=== PATIENT | male | born 1985 | race American Indian/Alaskan Native ===

== ENCOUNTER 2017-10-29 14:45 | Emergency (ER) | payer SELFPAY ==
[2017-10-29] MEDS ORDERED: Sodium Chloride 0.9% 1,000 ML IV STA ×2 (15:17→16:17)
--- NOTE | 2017-10-29 15:39 | ED PDOC ---
HPI: Abdomen Time Seen by Provider: 10/29/17 15:02 Chief Complaint (Nursing): Chest Pain Chief Complaint (Provider): Abdominal pain History Per: Patient History/Exam Limitations: no limitations Onset/Duration Of Symptoms: Days (x1), Worse Since (onset) Outside of [place] travel?: No Current Symptoms Are (Timing): Constant Context: Food (bangladeshi food) Pain Scale Rating Of: 10 Location Of Pain/Discomfort: Epigastric Quality Of Discomfort: Cramping Associated Symptoms: Vomiting (x10+ non bloody), Loss Of Appetite. denies: Diarrhea (black or bloody stools), Constipation Additional Complaint(s): Valentino Chatman is a 32 year old male, with a past medical history of seizures and asthma, who presents to the emergency department complaining of a constant epigastric abdominal pain associated with vomiting onset since yesterday. Patient states the pain began yesterday around 5pm while having Mong[place]ian food. The pain doesn't radiate but has been worsening since onset. Patient reports over x10 episodes of non bloody vomiting with occasional green emesis. He is unable to tolerate food or fluids, including water. Patient states his whole body aches and is currently sweating. He took pepto-bismol, jean-seltzer, and percocet with no relief of symptoms. He denies any diarrhea, constipation, black or bloody stool, and urinary symptoms. He denies any sick contacts or recent travels. No further medical complaints. PMD: None provided. Past Medical History Reviewed: Historical Data, Nursing Documentation, Vital Signs Vital Signs: Last Vital Signs Temp 97.8 F 10/29/17 22:40 Pulse 79 10/29/17 22:40 Resp 17 10/29/17 22:40 BP 126/76 10/29/17 22:40 Pulse Ox 100 10/29/17 22:40 - Medical History PMH: Back Problems, Seizures (epilepsy, last seizure within the past year) Denies: Asthma, Chronic Kidney Disease - Surgical History Surgical History: No Surg Hx - Family History Family History: States: Diabetes - Social History Current smoker - smoking cessation education provided: Yes Alcohol: Social Drugs: Cannabis (occasionally but not recently) - Immunization History Hx Influenza Vaccination: No - Home Medications Home Medications: Ambulatory Orders Medication Instructions Recorded Acetaminophen/Oxycodone Hydr 1 tab PO Q6 PRN #10 tab 08/18/14 [Percocet 325 mg-5 mg] Cyclobenzaprine HCl [Flexeril] 10 mg PO HS #7 tab 08/18/14 Ibuprofen 600 mg PO Q6 PRN #15 tab 08/18/14 Acetaminophen/Oxycodone Hydr 1 tab PO Q6H PRN #15 tab 08/21/14 [Percocet 325 mg-5 mg] Levetiracetam [Keppra] 250 mg PO BID #30 tab 12/24/14 Levetiracetam [Keppra] 250 mg PO BID #30 tab 01/14/15 Omeprazole [PrilOSEC] 40 mg PO DAILY #30 ecc 01/14/15 Famotidine [Pepcid] 20 mg PO BID #10 tab 02/15/15 Albuterol HFA [Ventolin HFA 90 2 puff IH [id number] #1 inhaler 03/04/16 mcg/actuation (8 g)] Azithromycin [Zithromax Tri-Herberth] 500 mg PO DAILY #1 packet 03/04/16 Prednisone 40 mg PO DAILY #6 tablet 03/04/16 Promethazine/Codeine 10 ml PO Q8 #50 ml 03/04/16 [Phenergan/Codeine Oral Syrup] Dicyclomine [Bentyl] 20 mg PO BID PRN #30 tab 10/29/17 Ondansetron ODT [Zofran ODT] 1 odt PO Q6 PRN #20 odt 10/29/17 - Allergies Allergies/Adverse Reactions: Allergies Allergy/AdvReac Type Severity Reaction Status Date / Time No Known Allergies Allergy Verified 08/18/14 17:55 Review of Systems ROS Statement: Except As Marked, All Systems Reviewed And Found Negative (and as per HPI) Constitutional: Positive for: Sweats, Other (body aches) Gastrointestinal: Positive for: Vomiting (x10 non bloody epsiodes with occasionaly green emesis), Abdominal Pain (epigastric cramp). Negative for: Diarrhea (black or bloody stools), Constipation Physical Exam - Reviewed Nursing Documentation Reviewed: Yes Vital Signs Reviewed: Yes - Physical Exam Appears: Positive for: Uncomfortable, In Acute Distress Head Exam: Positive for: ATRAUMATIC, NORMOCEPHALIC Skin: Positive for: Warm, Diaphoresis Eye Exam: Positive for: EOMI, PERRL ENT: Positive for: Pharynx Is (clear with dry mucus membranes) Neck: Positive for: Painless ROM, Supple Cardiovascular/Chest: Positive for: Chest Non Tender, Tachycardia Respiratory: Positive for: Normal Breath Sounds. Negative for: Respiratory Distress Gastrointestinal/Abdominal: Positive for: Bowel Sounds, Tenderness (diffuse), Guarding (diffuse). Negative for: Soft, Mass, Distended, Rebound Back: Positive for: Normal Inspection. Negative for: Decreased ROM Extremity: Positive for: Normal ROM. Negative for: Deformity Lymphatic: Negative for: Adenopathy Neurologic/Psych: Positive for: Alert, Mood/Affect (anxious). Negative for: Motor/Sensory Deficits - Laboratory Results Result Diagrams: 10/29/17 15:45 10/29/17 15:45 - ECG O2 Sat by Pulse Oximetry: 98 (RA) Pulse Ox Interpretation: Normal Medical Decision Making Medical Decision Making: Initial Impression: abdominal pain. Differential includes but not limited to: pancreatitis, gastritis, cholecystitis or cholelithiasis, obstruction Initial Plan: --Type and screen --VBG --Comp Metabolic Panel --Creatine Phosphokinase --Drug screen, urine --Lipase --Magnesium --Phosphorus --Urine dipstick --CBC w/ differential --PTT --PT --Obstructive series [RAD] --Dextrose 1,000 ml IV 100 mls/hr --Morphine 4 mg IVP --NS IV 1,000 ml @ 1,000 mls/hr --Zofran Inj 8 mg IV --Protonix Inj 40 mg IVP --Blood culture --reevaluation 16:08 Obstructive series FINDINGS: CHEST: Lungs: The lungs are clear. Cardiovascular: Normal size heart. No pulmonary vascular congestion. Pleura: No pleural fluid. No pneumothorax. Other findings: None. ABDOMEN AND PELVIS: Bowel: There is paucity of bowel gas. There are no differential air-fluid levels or bowel dilatation. No evidence of mechanical obstruction. Free air: None. Bones: Unremarkable. Other findings: None. IMPRESSION: Paucity of bowel gas. No evidence of differential air-fluid levels or bowel obstruction. Nonspecific bowel gas pattern. Clear lungs. -Markedly elevated CPK, additional IV fluid ordered. -On reevaluation patient still has pain. IV Toradol and ultrasound ordered. 16:56 Abdomen US FINDINGS: LIVER: Measures 14.8 cm. Normal echogenicity of the liver parenchyma. No mass. No intrahepatic bile duct dilatation. GALLBLADDER: There are no gallstones, wall thickening or pericholecystic fluid. The sonographic Buckner's sign is negative. COMMON BILE DUCT: Measures 3.0 mm. No stones. No dilatation. PANCREAS: Unremarkable as visualized. No mass. No ductal dilatation. RIGHT KIDNEY: Measures 12.0cm. Normal echogenicity. No calculus, mass, or hydronephrosis. LEFT KIDNEY: Measures 10.9cm. Normal echogenicity. No calculus, mass, or hydronephrosis. SPLEEN: Normal in size and contour. No mass. AORTA: No aneurysmal dilatation. IVC: Unremarkable. OTHER FINDINGS: None. IMPRESSION: Normal examination. 18:47 Abdomen/Pelvis CT FINDINGS: LOWER THORAX: The lung bases are clear. LIVER: The liver is normal in size and there is homogeneous enhancement. No gross lesion or ductal dilatation. GALLBLADDER AND BILE DUCTS: There are no calcified gallstones. PANCREAS: The pancreas is normal in size and there is homogeneous enhancement. No gross lesion or ductal dilatation. SPLEEN: The spleen is normal in size and appearance. ADRENALS: No discrete nodule. KIDNEYS AND URETERS: Both kidneys are normal in size and there is homogeneous enhancement without hydronephrosis or focal mass. VASCULATURE: No aortic aneurysm. BOWEL: Please note evaluation of the bowel is limited in the absence of oral contrast. Allowing for this, the small bowel loops are normal in caliber. There is apparent mild mural thickening in the colon. No bowel dilatation or obstruction APPENDIX: Normal appendix. PERITONEUM: No free fluid. No free air. LYMPH NODES: No enlarged lymph nodes. BLADDER: . Grossly normal in appearance. REPRODUCTIVE: The prostate gland is normal in size. BONES: No acute fracture. Within normal limits for the patient's age OTHER FINDINGS: None. IMPRESSION: Evaluation of the bowel is limited in the absence of oral contrast. Allowing for there is apparent mild mural thickening in the colon is nonspecific and could be related to underdistention however nonspecific infectious/inflammatory colitis cannot be excluded. Clinical correlation and follow-up is advised. No CT evidence for acute appendicitis. 18:55 -Patient still reporting mild nausea and abdominal pain, but greatly improved. Will attempt PO challenge. Discussed findings with patient. Tolerated PO Scribe Attestation: Documented by Isaias Velazquez, acting as a scribe for Raiza Garrison MD Provider Scribe Attestation: All medical record entries made by the Scribe were at my direction and personally dictated by me. I have reviewed the chart and agree that the record accurately reflects my personal performance of the history, physical exam, medical decision making, and the department course for this patient. I have also personally directed, reviewed, and agree with the discharge instructions and disposition. Disposition - Clinical Impression Clinical Impression: Abdominal pain, Rhabdomyolysis Counseled Patient/Family Regarding: Studies Performed, Diagnosis, Need For Followup, Rx Given - Disposition Referrals: [facility] [Outside] (FOLLOW UP AT CLINIC BY THE END OF THE WEEK) Disposition: Routine/Home Disposition Time: 22:13 Condition: IMPROVED Prescriptions: Dicyclomine [Bentyl] 20 mg PO BID PRN #30 tab PRN Reason: abdominal pain Ondansetron ODT [Zofran ODT] 1 odt PO Q6 PRN #20 odt PRN Reason: Nausea/Vomiting Instructions: Rhabdomyolysis (ED), Acute Nausea and Vomiting (ED), Acute Abdominal Pain (ED)
[2017-10-29] MEDS ORDERED: Morphine 4 MG/ML VIAL ONE (15:41)
[2017-10-29 15:55] LABS: BASO # 0.1 K/uL (0.0-0.2); BASO % 0.3 % (0.0-2.0); EOS % 0.1 % (0.0-4.0); HEMATOCRIT 45.5 % (35.0-51.0); LYMPH # 1.5 K/uL (1.0-4.3); LYMPH % 8.3 % (20.0-40.0); MEAN CELL VOLUME 93.2 fl (80.0-94.0); MEAN CORPUSCULAR HEMOGLOBIN 30.4 pg (27.0-31.0); MEAN CORPUSCULAR HGB CONC 32.6 g/dL (33.0-37.0); MEAN PLATELET VOLUME 11.3 fl (7.2-11.7); MONO # 0.7 K/uL (0.0-0.8); NEUT % 87.3 % (50.0-75.0); PLATELET COUNT 201 K/uL (130-400); RED CELL DISTRIBUTION WIDTH 13.7 % (11.5-14.5); WHITE BLOOD COUNT 18.4 K/uL (4.8-10.8)
[2017-10-29 16:00] LABS: VENOUS BLOOD GAS BASE EXCESS 1.5 mmol/L (0.0-2.0); VENOUS BLOOD GAS PCO2 49 mmHg (40-60); VENOUS BLOOD PH 7.36 (7.32-7.43)
[2017-10-29 16:08] LABS: PARTIAL THROMBOPLASTIN TIME 25.6 Seconds (25.6-37.1)
--- NOTE | 2017-10-29 16:10 | RAD ---
PROCEDURE: Radiographs of the chest and abdomen (obstructive series) HISTORY: abd pain r/o sbo COMPARISON: No prior. TECHNIQUE: AP radiograph of the chest, with upright and supine radiographs of the abdomen. FINDINGS: CHEST: Lungs: The lungs are clear. Cardiovascular: Normal size heart. No pulmonary vascular congestion. Pleura: No pleural fluid. No pneumothorax. Other findings: None. ABDOMEN AND PELVIS: Bowel: There is paucity of bowel gas. There are no differential air-fluid levels or bowel dilatation. No evidence of mechanical obstruction. Free air: None. Bones: Unremarkable. Other findings: None. IMPRESSION: Paucity of bowel gas. No evidence of differential air-fluid levels or bowel obstruction. Nonspecific bowel gas pattern. Clear lungs.
[2017-10-29 16:13] LABS: ALB/GLOB RATIO 1.4 (1.0-2.1); ALKALINE PHOSPHATASE 72 U/L (38-126); ALT/SGPT 109 U/L (21-72); AST/SGOT 77 U/L (17-59); BILIRUBIN,TOTAL 0.6 mg/dl (0.2-1.3); BLOOD UREA NITROGEN 17 mg/dl (9-20); CARBON DIOXIDE 23 mmol/L (22-30); CHLORIDE 105 mmol/L (98-107); GFR AFRICAN-AMERICAN > 60; GLUCOSE,RANDOM 120 mg/dL (75-110); LIPASE 22 U/L (23-300); MAGNESIUM 1.8 MG/DL (1.6-2.3); PHOSPHOROUS 3.7 mg/dl (2.5-4.5); POTASSIUM 4.1 MMOL/L (3.6-5.0); SODIUM 140 mmol/l (132-148); TOTAL PROTEIN 9.1 G/DL (6.3-8.2)
--- NOTE | 2017-10-29 16:57 | US ---
HISTORY: Abdominal pain and vomiting COMPARISON: None. TECHNIQUE: Grayscale imaging was performed. FINDINGS: LIVER: Measures 14.8 cm. Normal echogenicity of the liver parenchyma. No mass. No intrahepatic bile duct dilatation. GALLBLADDER: There are no gallstones, wall thickening or pericholecystic fluid. The sonographic Buckner's sign is negative. COMMON BILE DUCT: Measures 3.0 mm. No stones. No dilatation. PANCREAS: Unremarkable as visualized. No mass. No ductal dilatation. RIGHT KIDNEY: Measures 12.0cm. Normal echogenicity. No calculus, mass, or hydronephrosis. LEFT KIDNEY: Measures 10.9cm. Normal echogenicity. No calculus, mass, or hydronephrosis. SPLEEN: Normal in size and contour. No mass. AORTA: No aneurysmal dilatation. IVC: Unremarkable. OTHER FINDINGS: None. IMPRESSION: Normal examination.
[2017-10-29 17:31] LABS: BASOPHIL 1 % (0-2); LARGE PLATELETS PRESENT; NEUTROPHIL 84 % (42-75); TOTAL CELLS COUNTED 100
[2017-10-29] MEDS ORDERED: Iohexol 300 100 ML IJ ONE (17:54)
--- NOTE | 2017-10-29 18:49 | CT ---
PROCEDURE: CT Abdomen and Pelvis with contrast HISTORY: intractable abdominal pain COMPARISON: None. TECHNIQUE: CT scan of the abdomen and pelvis was performed after intravenous administration of contrast. Oral contrast was not administered. Coronal and sagittal reformatted images were obtained. Contrast dose: 90 mL Omnipaque 300 Radiation dose: Total exam DLP = 315.95 mGy-cm. This CT exam was performed using one or more of the following dose reduction techniques: Automated exposure control, adjustment of the mA and/or kV according to patient size, and/or use of iterative reconstruction technique. FINDINGS: LOWER THORAX: The lung bases are clear. LIVER: The liver is normal in size and there is homogeneous enhancement. No gross lesion or ductal dilatation. GALLBLADDER AND BILE DUCTS: There are no calcified gallstones. PANCREAS: The pancreas is normal in size and there is homogeneous enhancement. No gross lesion or ductal dilatation. SPLEEN: The spleen is normal in size and appearance. ADRENALS: No discrete nodule. KIDNEYS AND URETERS: Both kidneys are normal in size and there is homogeneous enhancement without hydronephrosis or focal mass. VASCULATURE: No aortic aneurysm. BOWEL: Please note evaluation of the bowel is limited in the absence of oral contrast. Allowing for this, the small bowel loops are normal in caliber. There is apparent mild mural thickening in the colon. No bowel dilatation or obstruction APPENDIX: Normal appendix. PERITONEUM: No free fluid. No free air. LYMPH NODES: No enlarged lymph nodes. BLADDER: . Grossly normal in appearance. REPRODUCTIVE: The prostate gland is normal in size. BONES: No acute fracture. Within normal limits for the patient's age OTHER FINDINGS: None. IMPRESSION: Evaluation of the bowel is limited in the absence of oral contrast. Allowing for there is apparent mild mural thickening in the colon is nonspecific and could be related to underdistention however nonspecific infectious/inflammatory colitis cannot be excluded. Clinical correlation and follow-up is advised. No CT evidence for acute appendicitis.
[2017-10-29 22:39] VITALS: RESP 17
[2017-10-29 22:42] VITALS: BP 126/76; PULSE 79; TEMP 97.8
--- NOTE | 2017-10-30 11:20 | CARD ---
APPROVED REPORT EKG Measurement Heart [id number] <Conclusion> Normal sinus rhythm Right atrial enlargement Rightward axis Borderline ECG
[2017-11-01 18:10] VITALS: O2SAT 98
== END 2017-10-29 22:19 | disposition home or self-care (01) ==
LOC: H.ER 14:45
DX: R10.13 Epigastric pain (principal); M62.82 Rhabdomyolysis; G40.909 Epilepsy, unspecified, not intractable, without status epilepticus; F17.200 Nicotine dependence, unspecified, uncomplicated; I51.7 Cardiomegaly
CPT/HCPCS: 74022; 74177; 76700; 80053; 82550; 82803; 83690; 83735; 84100; 85025; 85610; 85730; 87040; 93005; 96361; 96374; 96375; 99285; C9113; J1885; J2270; J2405; J7040; J7042; Q9967

== ENCOUNTER 2017-11-17 07:25 | Observation (INO) | payer MEDICAID ==
[2017-11-17 07:36] VITALS: BMI 25.7
[2017-11-17] MEDS ORDERED: Sodium Chloride 0.9% 1,000 ML IV STA (07:36)
--- NOTE | 2017-11-17 07:39 | ED PDOC ---
HPI: Seizure Time Seen by Provider: 11/17/17 07:28 Chief Complaint (Nursing): Seizure Chief Complaint (Provider): Seizure History Per: Patient, EMS, Family History/Exam Limitations: clinical condition Additional Complaint(s): Family heard a loud bang in pt. room so they went up and saw him on the ground. Suspect he may of had a seizure as he has a hx of it and gets seizures. No drugs or etoh use per family. Pt. with limited communication, not responding to questions. Past Medical History Reviewed: Nursing Documentation, Vital Signs Vital Signs: Last Vital Signs Temp 97.8 F 11/17/17 08:26 Pulse 100 H 11/17/17 08:26 Resp 17 11/17/17 08:26 BP 106/59 L 11/17/17 08:26 Pulse Ox 100 11/17/17 08:26 - Medical History PMH: Back Problems, Seizures (epilepsy, last seizure within the past year) Denies: Asthma, Chronic Kidney Disease - Family History Family History: States: Unknown Family Hx, Diabetes - Living Arrangements Living Arrangements: With Family - Immunization History Hx Influenza Vaccination: No - Home Medications Home Medications: Ambulatory Orders Medication Instructions Recorded Acetaminophen/Oxycodone Hydr 1 tab PO Q6 PRN #10 tab 08/18/14 [Percocet 325 mg-5 mg] Cyclobenzaprine HCl [Flexeril] 10 mg PO HS #7 tab 08/18/14 Ibuprofen 600 mg PO Q6 PRN #15 tab 08/18/14 Acetaminophen/Oxycodone Hydr 1 tab PO Q6H PRN #15 tab 08/21/14 [Percocet 325 mg-5 mg] Levetiracetam [Keppra] 250 mg PO BID #30 tab 12/24/14 Levetiracetam [Keppra] 250 mg PO BID #30 tab 01/14/15 Omeprazole [PrilOSEC] 40 mg PO DAILY #30 ecc 01/14/15 Famotidine [Pepcid] 20 mg PO BID #10 tab 02/15/15 Albuterol HFA [Ventolin HFA 90 2 puff IH [id number] #1 inhaler 03/04/16 mcg/actuation (8 g)] Azithromycin [Zithromax Tri-Herberth] 500 mg PO DAILY #1 packet 03/04/16 Prednisone 40 mg PO DAILY #6 tablet 03/04/16 Promethazine/Codeine 10 ml PO Q8 #50 ml 03/04/16 [Phenergan/Codeine Oral Syrup] Dicyclomine [Bentyl] 20 mg PO BID PRN #30 tab 10/29/17 Ondansetron ODT [Zofran ODT] 1 odt PO Q6 PRN #20 odt 10/29/17 - Allergies Allergies/Adverse Reactions: Allergies Allergy/AdvReac Type Severity Reaction Status Date / Time No Known Allergies Allergy Verified 11/17/17 07:29 Review of Systems Review Of Systems: ROS cannot be obtained secondary to pt's inabilty to answer questions. Physical Exam - Reviewed Nursing Documentation Reviewed: Yes Vital Signs Reviewed: Yes - Physical Exam Appears: Positive for: Uncomfortable Head Exam: Positive for: ATRAUMATIC, NORMAL INSPECTION, NORMOCEPHALIC Skin: Positive for: Normal Color, Warm, DRY Eye Exam: Positive for: Normal appearance, PERRL ENT: Positive for: Other (abrasion L frontal tongue mild). Negative for: Nasal Congestion, Pharyngeal Erythema Neck: Positive for: Supple, Trachea Midline Cardiovascular/Chest: Positive for: Regular Rate, Rhythm Respiratory: Positive for: CNT, Normal Breath Sounds Gastrointestinal/Abdominal: Positive for: Bowel Sounds, Soft. Negative for: Tenderness Back: Positive for: Normal Inspection. Negative for: L CVA Tenderness, R CVA Tenderness Extremity: Negative for: Tenderness, Pedal Edema Neurologic/Psych: Positive for: Alert, Other (pt. responding to his name and follows some commands; moving all extremities at will). Negative for: Facial Droop - Laboratory Results Result Diagrams: 11/17/17 07:55 11/17/17 07:55 Interpretation Of Abn Labs: 19.8 wbc, co2 less then 5, lactate elevated - ECG ECG: Positive for: Interpreted By Me, Viewed By Me ECG Rhythm: Positive for: Normal QRS, Normal ST Segment, Sinus Rhythm - Progress ED Course And Treament: 1054: More awake. States he has not taken keppra for over 1 yr. States no pcp. Hx of sz. Considering symptoms and labs, will admit. Spoke with Dr. Beaver. Will admit tele obs. Stable. AAOx3. Spoke with Dr. Nguyễn. Wants keppra 1gm. 500mg bid. - Critical Care Total Time (In Min): 30 Documented Critical Care: Time excludes all time spent performint seperately billable procedures Disposition - Clinical Impression Clinical Impression: Generalized seizure, Dehydration, Head injuries, Drug use - Patient ED Disposition Is Patient to be Admitted: Yes Counseled Patient/Family Regarding: Studies Performed, Diagnosis - Disposition Disposition Time: 10:01 Condition: FAIR - Pt Status Changed To: Hospital Disposition Of: Observation - POA Present On Arrival: Falls Or Trauma
[2017-11-17 08:28] LABS: BASO # 0.2 K/uL (0.0-0.2); BASO % 0.8 % (0.0-2.0); EOS # 0.4 K/uL (0.0-0.7); EOS % 1.9 % (0.0-4.0); HEMOGLOBIN 15.3 g/dL (12.0-18.0); LYMPH # 5.7 K/uL (1.0-4.3); MEAN CELL VOLUME 102.6 fl (80.0-94.0); MEAN CORPUSCULAR HEMOGLOBIN 30.8 pg (27.0-31.0); MEAN CORPUSCULAR HGB CONC 30.1 g/dL (33.0-37.0); MEAN PLATELET VOLUME 11.4 fl (7.2-11.7); MONO # 1.3 K/uL (0.0-0.8); MONO % 6.4 % (0.0-10.0); NEUT # 12.3 K/uL (1.8-7.0); NEUT % 61.9 % (50.0-75.0); NRBC % 0.1 % (0.0-0.0); RBC 4.95 Mil/uL (4.40-5.90); RED CELL DISTRIBUTION WIDTH 14.7 % (11.5-14.5); WHITE BLOOD COUNT 19.8 K/uL (4.8-10.8)
--- NOTE | 2017-11-17 08:45 | CT ---
PROCEDURE: CT HEAD WITHOUT CONTRAST. HISTORY: headache COMPARISON: None available. TECHNIQUE: Axial computed tomography images were obtained through the head/brain without intravenous contrast. Radiation dose: Total exam DLP = 1140 mGy-cm. This CT exam was performed using one or more of the following dose reduction techniques: Automated exposure control, adjustment of the mA and/or kV according to patient size, and/or use of iterative reconstruction technique. FINDINGS: HEMORRHAGE: No intracranial hemorrhage. BRAIN: No mass effect or edema. No atrophy or chronic microvascular ischemic changes. VENTRICLES: Unremarkable. No hydrocephalus. CALVARIUM: Unremarkable. PARANASAL SINUSES: Unremarkable as visualized. No significant inflammatory changes. MASTOID AIR CELLS: Unremarkable as visualized. No inflammatory changes. OTHER FINDINGS: No cortical effacement is appreciated. Subdural windows show no evidence of extra-axial collection. Retro-orbital regions are unremarkable. Pituitary gland is normal in size. Posterior fossa is unremarkable. IMPRESSION: Unremarkable CT scan of the brain. If symptoms persist MRI would be suggested for further evaluation.
[2017-11-17 09:54] LABS: BARBITURATES, UR NEGATIVE (NEGATIVE); BENZODIAZEPINES, UR NEGATIVE (NEGATIVE); OPIATES, UR NEGATIVE (NEGATIVE); PHENCYCLIDINE, UR NEGATIVE (NEGATIVE)
[2017-11-17 10:25] LABS: ALB/GLOB RATIO 1.5 (1.0-2.1); ALBUMIN 5.8 g/dL (3.5-5.0); ALT/SGPT 47 U/L (21-72); AST/SGOT 44 U/L (17-59); BLOOD UREA NITROGEN 8 mg/dl (9-20); CALCIUM 10.5 mg/dL (8.4-10.2); GFR AFRICAN-AMERICAN > 60; GFR NON-AFRICAN AMERICAN > 60
[2017-11-17 10:58] LABS: ABG ALLEN TEST YES; ARTERIAL BLOOD GAS HCO3 21.3 mmol/L (21-28); ARTERIAL BLOOD GAS O2 SAT 100.9 % (95-98); ARTERIAL BLOOD GAS PCO2 37 mm/Hg (35-45); ARTERIAL BLOOD GAS PH 7.35 (7.35-7.45); ARTERIAL BLOOD GAS PO2 130 mm/Hg (80-100); ARTERIAL BLOOD GAS TCO2 21.5 mmol/L (22-28)
[2017-11-17] MEDS ORDERED: Lactated Ringer's 1,000 ML IV SCH ×2 (11:00→11:45)
--- NOTE | 2017-11-17 11:16 | RAD ---
HISTORY: seizure COMPARISON: 03/20/2016 FINDINGS: LUNGS: No focal infiltrate is seen on this single frontal chest x-ray. Hilar regions are normal in outline. Heart is normal in size. Mild scoliosis is seen. PLEURA: No significant pleural effusion identified, no pneumothorax apparent. CARDIOVASCULAR: Normal. OSSEOUS STRUCTURES: No significant abnormalities. VISUALIZED UPPER ABDOMEN: Normal. OTHER FINDINGS: None. IMPRESSION: No focal alveolar infiltrate.
[2017-11-17] MEDS ORDERED: levETIRAcetam 1,000 MG in Sodium Chloride 0.9% 100 ML IVPB STA (11:35)
--- NOTE | 2017-11-17 11:56 | CARD ---
APPROVED REPORT EKG Measurement Heart [id number] <Conclusion> Normal sinus rhythm Rightward axis Borderline ECG
--- NOTE | 2017-11-17 12:12 | CP.PCM.HP ---
History of Present Illness - History of Present Illness History of Present Illness: This is a 32 year old male with a pmh of epilepsy who presents to the ED s/p seizure x 2. The patient has not been on his home medication of Keppra in over a year as he does not have insurance and can not afford it. As per the patient' s cohabitant, the patient is under a lot of stress at home and has not been sleeping well. This morning, she heard a loud bang in the patients bedroom and came and saw him on the ground. However at that time there was no witnessed seizure activity. He woke up about 3 minutes later but was very confused. EMS was called at that time. The patient had a second seizure witnessed by EMS that was genralized tonic/clonic in nature which lasted approximately 4 minutes. In the ED he was given Ativan and there was no further witnessed seizure activity. Dr. Nguyễn was called and he instructed ED physician to give Keppra 1 gram IV which was done. Currently the patient is somnolent and unable to give review of systems. Labs show elevated lactic acid, WBC, CPK, all secondary to his seizure. However, he also has hyperglycemia, so we will eval for diabetes. The history was obtained from the patient's cohabitant, Manasa, who can be reached at [phone]. Present on Admission - Present on Admission Any Indicators Present on Admission: No Review of Systems - Review of Systems Systems not reviewed;Unavailable: Altered Mental Status Past Patient History - Infectious Disease Hx of Infectious Diseases: None - Past Medical History & Family History Past Family History: Reviewed and not pertinent - Past Social History Smoking Status: Light Smoker < 10 Cigarettes Daily Alcohol: Social Drugs: Cannabis Home Situation {Lives}: Friends - CARDIAC Hx Cardiac Disorders: No - PULMONARY Hx Asthma: No - NEUROLOGICAL Hx Seizures: Yes (epilepsy, last seizure within the past year) - HEENT Hx HEENT Problems: No - RENAL Hx Chronic Kidney Disease: No - ENDOCRINE/METABOLIC Hx Endocrine Disorders: No - HEMATOLOGICAL/ONCOLOGICAL Hx Blood Disorders: No - INTEGUMENTARY Hx Dermatological Problems: No - MUSCULOSKELETAL/RHEUMATOLOGICAL Hx Musculoskeletal Disorders: Yes - GASTROINTESTINAL Hx Gastrointestinal Disorders: No - GENITOURINARY/GYNECOLOGICAL Hx Genitourinary Disorders: No - PSYCHIATRIC Hx Psychophysiologic Disorder: No Hx Substance Use: Yes - SURGICAL HISTORY Hx Surgeries: No - ANESTHESIA Hx Anesthesia: No Meds Allergies/Adverse Reactions: Allergies Allergy/AdvReac Type Severity Reaction Status Date / Time No Known Allergies Allergy Verified 11/17/17 07:29 Physical Exam - Additional Findings Additional findings: Physical exam: Constitutional- Somnolent but arousable, appears comfortable. Head- NCAT, PERRL Eye- PERRL, EOMI ENT- normal exam, MMM. Neck- normal inspection, supple, no JVD Respiratory- CTAB, no wheezes rales rhonchi Cardiovascular- RRR, +S1, +S2 no MRG GI/Abdominal- normal bowel sounds, soft, no mass, no hsm Skin- warm, dry Extremities Exam- normal capillary refill, normal inspection Neurological Exam- somnolent but arousable. Psych- normal mood, normal affect Results - Vital Signs Recent Vital Signs: Last Vital Signs Temp 97.8 F 11/17/17 08:26 Pulse 100 H 11/17/17 08:26 Resp 17 11/17/17 08:26 BP 106/59 L 11/17/17 08:26 Pulse Ox 100 11/17/17 08:26 - Labs Result Diagrams: 11/17/17 07:55 11/17/17 07:55 Labs: Laboratory Results - last 24 hr 11/17/17 11/17/17 11/17/17 07:29 07:55 07:55 WBC 19.8 H RBC 4.95 Hgb 15.3 Hct 50.8 MCV 102.6 H D MCH 30.8 MCHC 30.1 L RDW 14.7 H Plt Count 240 MPV 11.4 Neut % (Auto) 61.9 Lymph % (Auto) 29.0 [place] % (Auto) 6.4 Eos % (Auto) 1.9 Baso % (Auto) 0.8 Neut # 12.3 H Lymph # 5.7 H [place] # 1.3 H Eos # 0.4 Baso # 0.2 pCO2 pO2 HCO3 ABG pH ABG Total CO2 ABG O2 Saturation ABG Base Excess Rolly Test ABG Potassium A-a O2 Difference Glucose Lactate FiO2 Sodium 148 Potassium 3.5 L Chloride 105 Carbon Dioxide < 5 L* D Anion Gap 42 H BUN 8 L Creatinine 1.0 Est GFR ( Amer) > 60 Est GFR (Non-Af Amer) > 60 POC Glucose (mg/dL) 243 H Random Glucose 285 H Lactic Acid Calcium 10.5 H Total Bilirubin 0.3 AST 44 ALT 47 Alkaline Phosphatase 72 Total Creatine Kinase 323 H Troponin I < 0.0120 Total Protein 9.7 H Albumin 5.8 H Globulin 4.0 H Albumin/Globulin Ratio 1.5 Arterial Blood Potassium Urine Opiates Screen Urine Methadone Screen Ur Barbiturates Screen Ur Phencyclidine Scrn Ur Amphetamines Screen U Benzodiazepines Scrn U Oth Cocaine Metabols U Cannabinoids Screen Alcohol, Quantitative < 10 11/17/17 11/17/17 11/17/17 07:55 08:14 10:47 WBC RBC Hgb Hct MCV MCH MCHC RDW Plt Count MPV Neut % (Auto) Lymph % (Auto) [place] % (Auto) Eos % (Auto) Baso % (Auto) Neut # Lymph # [place] # Eos # Baso # pCO2 37 pO2 130 H HCO3 21.3 ABG pH 7.35 ABG Total CO2 21.5 L ABG O2 Saturation 100.9 H ABG Base Excess -4.7 L Rolly Test Yes ABG Potassium 3.5 L A-a O2 Difference 23.0 Glucose 85 Lactate 0.7 FiO2 28.0 Sodium 137.0 Potassium Chloride 107.0 Carbon Dioxide Anion Gap BUN Creatinine Est GFR ( Amer) Est GFR (Non-Af Amer) POC Glucose (mg/dL) Random Glucose Lactic Acid 14.6 H* Calcium Total Bilirubin AST ALT Alkaline Phosphatase Total Creatine Kinase Troponin I Total Protein Albumin Globulin Albumin/Globulin Ratio Arterial Blood Potassium 3.5 L Urine Opiates Screen Negative Urine Methadone Screen Negative Ur Barbiturates Screen Negative Ur Phencyclidine Scrn Negative Ur Amphetamines Screen Negative U Benzodiazepines Scrn Negative U Oth Cocaine Metabols Negative U Cannabinoids Screen Positive H Alcohol, Quantitative Assessment & Plan - Assessment and Plan (Free Text) Plan: ASSESSMENT/PLAN Reoccurrence of epileptic seizure - Tele/obs admission - Consultation with Dr. nguyễn appreciated - Continue Keppra 1000 mg IV q 12 hours - Ativan PRN for seizure activity - Seizure precautions - Neuro checks q 4 hours - Regular diet - NS at 75 cc/hour - repeat CPK levels - Ibuprofen PRN for pain Hyperglycemia on admission, 285 - HGA1C for eval of DM, poss type 1? - TSH - Lipid profile Hypocarbia - Likely due to hyperventilation - Recheck DVT prophylaxis - SCDs due to fall risk
[2017-11-17 12:38] LABS: HDL CHOLESTEROL 76 MG/DL (30-70)
[2017-11-17 12:49] LABS: LDL CHOLESTEROL 71 mg/dL (0-129)
[2017-11-17] MEDS: Sodium Chloride 0.9% 1,000 ML IV SCH (13:36)
--- NOTE | 2017-11-17 17:24 | CP.PCM.CON ---
History of Present Illness - History of Present Illness History of Present Illness: Mr. Chatman is a 32-year-old man with a past medical history of epilepsy, and was previously on Keppra, but lost his insurance and has not taken it for the last year. Yesterday, he had a generalized tonic clonic seizure and was admitted for stabilization since he was in a post-ictal state. He was loaded with Keppra 1 gram IV. Today, he is back to baseline, but continues to complain of feeling irritable and lethargic with the Keppra. I recommended Depakote 500 mg BID and told him that it would cost about $40 a month. He said that he would not be able to afford that. His urine drug screen was positive for cannabis. He denied having a headache today, but did complain of feeling sore. Review of Systems - Review of Systems All systems: reviewed and no additional remarkable complaints except Past Patient History - Infectious Disease Hx of Infectious Diseases: None - Past Medical History & Family History Past Family History: Reviewed and not pertinent - Past Social History Smoking Status: Light Smoker < 10 Cigarettes Daily - CARDIAC Hx Cardiac Disorders: No - PULMONARY Hx Respiratory Disorders: No Hx Asthma: No - NEUROLOGICAL Hx Seizures: Yes (epilepsy, last seizure within the past year) - HEENT Hx HEENT Problems: No - RENAL Hx Chronic Kidney Disease: No - ENDOCRINE/METABOLIC Hx Endocrine Disorders: No - HEMATOLOGICAL/ONCOLOGICAL Hx Blood Disorders: No - INTEGUMENTARY Hx Dermatological Problems: No - MUSCULOSKELETAL/RHEUMATOLOGICAL Hx Falls: Yes (today) - GASTROINTESTINAL Hx Gastrointestinal Disorders: No - GENITOURINARY/GYNECOLOGICAL Hx Genitourinary Disorders: No - PSYCHIATRIC Hx Substance Use: Yes - SURGICAL HISTORY Hx Surgeries: No - ANESTHESIA Hx Anesthesia: No Meds Allergies/Adverse Reactions: Allergies Allergy/AdvReac Type Severity Reaction Status Date / Time No Known Allergies Allergy Verified 11/17/17 07:29 - Medications Medications: Current Medications Sodium Chloride (Sodium Chloride 0.9%) 1,000 mls @ 75 mls/hr IV .[id number] REEMA Last Admin: 11/17/17 13:36 Dose: 75 mls/hr Ibuprofen (Motrin Tab) 400 mg PO Q6 PRN PRN Reason: Pain, moderate (4-7) Last Admin: 11/17/17 13:02 Dose: 400 mg Lorazepam (Ativan) 1 mg IVP ONCE PRN PRN Reason: Seizure activity Physical Exam - Constitutional Appears: Well - Head Exam Head Exam: ATRAUMATIC, NORMAL INSPECTION, NORMOCEPHALIC - Eye Exam Eye Exam: EOMI, Normal appearance, PERRL - ENT Exam ENT Exam: Mucous Membranes Moist, Normal Exam - Neck Exam Neck exam: Positive for: Normal Inspection - Respiratory Exam Respiratory Exam: Clear to Auscultation Bilateral, NORMAL BREATHING PATTERN - Cardiovascular Exam Cardiovascular Exam: REGULAR RHYTHM, +S1, +S2 - GI/Abdominal Exam GI & Abdominal Exam: Normal Bowel Sounds, Soft. absent: Tenderness - Rectal Exam Rectal Exam: Deferred - Extremities Exam Extremities exam: Positive for: normal inspection - Back Exam Back exam: NORMAL INSPECTION - Neurological Exam Neurological exam: Alert, CN II-XII Intact, Normal Gait, Oriented x3, Reflexes Normal - Psychiatric Exam Psychiatric exam: Normal Affect, Normal Mood Results - Vital Signs Recent Vital Signs: Last Vital Signs Temp 98.7 F 11/17/17 16:19 Pulse 86 11/17/17 16:19 Resp 20 11/17/17 16:19 BP 115/63 11/17/17 16:19 Pulse Ox 98 11/17/17 16:19 - Labs Result Diagrams: 11/17/17 07:55 11/17/17 07:55 Labs: Laboratory Results - last 24 hr 11/17/17 11/17/17 11/17/17 07:29 07:55 07:55 WBC 19.8 H RBC 4.95 Hgb 15.3 Hct 50.8 MCV 102.6 H D MCH 30.8 MCHC 30.1 L RDW 14.7 H Plt Count 240 MPV 11.4 Neut % (Auto) 61.9 Lymph % (Auto) 29.0 [place] % (Auto) 6.4 Eos % (Auto) 1.9 Baso % (Auto) 0.8 Neut # 12.3 H Lymph # 5.7 H [place] # 1.3 H Eos # 0.4 Baso # 0.2 pCO2 pO2 HCO3 ABG pH ABG Total CO2 ABG O2 Saturation ABG Base Excess Rolly Test ABG Potassium A-a O2 Difference Glucose Lactate FiO2 Sodium 148 Potassium 3.5 L Chloride 105 Carbon Dioxide < 5 L* D Anion Gap 42 H BUN 8 L Creatinine 1.0 Est GFR ( Amer) > 60 Est GFR (Non-Af Amer) > 60 POC Glucose (mg/dL) 243 H Random Glucose 285 H Lactic Acid Calcium 10.5 H Total Bilirubin 0.3 AST 44 ALT 47 Alkaline Phosphatase 72 Total Creatine Kinase 323 H Troponin I < 0.0120 Total Protein 9.7 H Albumin 5.8 H Globulin 4.0 H Albumin/Globulin Ratio 1.5 Triglycerides 169 H D Cholesterol 175 LDL Cholesterol Direct 71 HDL Cholesterol 76 H TSH 3rd Generation 3.31 Arterial Blood Potassium Urine Opiates Screen Urine Methadone Screen Ur Barbiturates Screen Ur Phencyclidine Scrn Ur Amphetamines Screen U Benzodiazepines Scrn U Oth Cocaine Metabols U Cannabinoids Screen Alcohol, Quantitative < 10 11/17/17 11/17/17 11/17/17 07:55 08:14 10:47 WBC RBC Hgb Hct MCV MCH MCHC RDW Plt Count MPV Neut % (Auto) Lymph % (Auto) [place] % (Auto) Eos % (Auto) Baso % (Auto) Neut # Lymph # [place] # Eos # Baso # pCO2 37 pO2 130 H HCO3 21.3 ABG pH 7.35 ABG Total CO2 21.5 L ABG O2 Saturation 100.9 H ABG Base Excess -4.7 L Rolly Test Yes ABG Potassium 3.5 L A-a O2 Difference 23.0 Glucose 85 Lactate 0.7 FiO2 28.0 Sodium 137.0 Potassium Chloride 107.0 Carbon Dioxide Anion Gap BUN Creatinine Est GFR ( Amer) Est GFR (Non-Af Amer) POC Glucose (mg/dL) Random Glucose Lactic Acid 14.6 H* Calcium Total Bilirubin AST ALT Alkaline Phosphatase Total Creatine Kinase Troponin I Total Protein Albumin Globulin Albumin/Globulin Ratio Triglycerides Cholesterol LDL Cholesterol Direct HDL Cholesterol TSH 3rd Generation Arterial Blood Potassium 3.5 L Urine Opiates Screen Negative Urine Methadone Screen Negative Ur Barbiturates Screen Negative Ur Phencyclidine Scrn Negative Ur Amphetamines Screen Negative U Benzodiazepines Scrn Negative U Oth Cocaine Metabols Negative U Cannabinoids Screen Positive H Alcohol, Quantitative Assessment & Plan (1) Epilepsy Assessment and Plan: Will stare Depakote 500 mg BID and stop Keppra. A social organization professor should be consulted to assist with insurance. Case management consult is recommended. The patient should be followed by an outpatient neurologist. Status: Acute Priority: High
[2017-11-17 17:47] LABS: BLOOD UREA NITROGEN 9 mg/dl (9-20); CALCIUM 8.8 mg/dL (8.4-10.2); GFR AFRICAN-AMERICAN > 60; GFR NON-AFRICAN AMERICAN > 60
[2017-11-17] MEDS: Divalproex 500 mg DR(BID formulation) PO SCH (18:03)
[2017-11-17] MEDS ORDERED: levETIRAcetam 1,000 MG in Sodium Chloride 0.9% 100 ML IVPB SCH (21:00)
[2017-11-18 00:56] VITALS: RESP 18
[2017-11-18] MEDS: Sodium Chloride 0.9% 1,000 ML IV SCH ×2 (02:55→11:14)
[2017-11-18 05:26] LABS: HEMOGLOBIN 12.3 g/dL (12.0-18.0); MEAN CELL VOLUME 92.1 fl (80.0-94.0); MEAN CORPUSCULAR HEMOGLOBIN 30.1 pg (27.0-31.0); MEAN CORPUSCULAR HGB CONC 32.7 g/dL (33.0-37.0); RBC 4.09 Mil/uL (4.40-5.90); RED CELL DISTRIBUTION WIDTH 13.4 % (11.5-14.5); WHITE BLOOD COUNT 18.8 K/uL (4.8-10.8)
[2017-11-18 05:43] LABS: BLOOD UREA NITROGEN 10 mg/dl (9-20); GFR AFRICAN-AMERICAN > 60; GFR NON-AFRICAN AMERICAN > 60
[2017-11-18] MEDS: Divalproex 500 mg DR(BID formulation) PO SCH (09:00)
--- NOTE | 2017-11-18 10:48 | CP.PCM.DIS ---
Provider - Provider Date of Admission: 11/17/17 10:53 Attending physician: Coleman Beaver DO Time Spent in preparation of Discharge (in minutes): 20 Hospital Course - Lab Results Lab Results: Most Recent Lab Values WBC 18.8 K/uL (4.8-10.8) H 11/18/17 04:25 RBC 4.09 Mil/uL (4.40-5.90) L 11/18/17 04:25 Hgb 12.3 g/dL (12.0-18.0) D 11/18/17 04:25 Hct 37.6 % (35.0-51.0) 11/18/17 04:25 MCV 92.1 fl (80.0-94.0) D 11/18/17 04:25 MCH 30.1 pg (27.0-31.0) 11/18/17 04:25 MCHC 32.7 g/dL (33.0-37.0) L 11/18/17 04:25 RDW 13.4 % (11.5-14.5) 11/18/17 04:25 Plt Count 170 K/uL (130-400) 11/18/17 04:25 MPV 11.4 fl (7.2-11.7) 11/17/17 07:55 Neut % (Auto) 61.9 % (50.0-75.0) 11/17/17 07:55 Lymph % (Auto) 29.0 % (20.0-40.0) 11/17/17 07:55 [place] % (Auto) 6.4 % (0.0-10.0) 11/17/17 07:55 Eos % (Auto) 1.9 % (0.0-4.0) 11/17/17 07:55 Baso % (Auto) 0.8 % (0.0-2.0) 11/17/17 07:55 Neut # 12.3 K/uL (1.8-7.0) H 11/17/17 07:55 Lymph # 5.7 K/uL (1.0-4.3) H 11/17/17 07:55 [place] # 1.3 K/uL (0.0-0.8) H 11/17/17 07:55 Eos # 0.4 K/uL (0.0-0.7) 11/17/17 07:55 Baso # 0.2 K/uL (0.0-0.2) 11/17/17 07:55 pCO2 37 mm/Hg (35-45) 11/17/17 10:47 pO2 130 mm/Hg (80-100) H 11/17/17 10:47 HCO3 21.3 mmol/L (21-28) 11/17/17 10:47 ABG pH 7.35 (7.35-7.45) 11/17/17 10:47 ABG Total CO2 21.5 mmol/L (22-28) L 11/17/17 10:47 ABG O2 Saturation 100.9 % (95-98) H 11/17/17 10:47 ABG Base Excess -4.7 mmol/L (-2.0-3.0) L 11/17/17 10:47 Rolly Test Yes 11/17/17 10:47 ABG Potassium 3.5 mmol/L (3.6-5.2) L 11/17/17 10:47 A-a O2 Difference 23.0 mm/Hg 11/17/17 10:47 Sodium 137.0 mmol/L (132-148) 11/17/17 10:47 Chloride 107.0 mmol/L (98-107) 11/17/17 10:47 Glucose 85 mg/dL (75-110) 11/17/17 10:47 Lactate 0.7 mmol/L (0.7-2.1) 11/17/17 10:47 FiO2 28.0 % 11/17/17 10:47 Sodium 140 mmol/l (132-148) 11/18/17 04:25 Potassium 4.1 MMOL/L (3.6-5.0) 11/18/17 04:25 Chloride 108 mmol/L (98-107) H 11/18/17 04:25 Carbon Dioxide 20 mmol/L (22-30) L 11/18/17 04:25 Anion Gap 16 (10-20) 11/18/17 04:25 BUN 10 mg/dl (9-20) 11/18/17 04:25 Creatinine 0.7 mg/dl (0.8-1.5) L 11/18/17 04:25 Est GFR ( Amer) > 60 11/18/17 04:25 Est GFR (Non-Af Amer) > 60 11/18/17 04:25 POC Glucose (mg/dL) 243 mg/dL (65-110) H 11/17/17 07:29 Random Glucose 97 mg/dL (75-110) 11/18/17 04:25 Lactic Acid 14.6 MMOL/L (0.7-2.1) H* 11/17/17 07:55 Calcium 9.0 mg/dL (8.4-10.2) 11/18/17 04:25 Total Bilirubin 0.3 mg/dl (0.2-1.3) 11/17/17 07:55 AST 44 U/L (17-59) 11/17/17 07:55 ALT 47 U/L (21-72) 11/17/17 07:55 Alkaline Phosphatase 72 U/L (38-126) 11/17/17 07:55 Total Creatine Kinase 4126 U/L (55-170) H 11/18/17 04:25 Troponin I < 0.0120 ng/mL (0.00-0.120) 11/17/17 07:55 Total Protein 9.7 G/DL (6.3-8.2) H 11/17/17 07:55 Albumin 5.8 g/dL (3.5-5.0) H 11/17/17 07:55 Globulin 4.0 gm/dL (2.2-3.9) H 11/17/17 07:55 Albumin/Globulin Ratio 1.5 (1.0-2.1) 11/17/17 07:55 Triglycerides 169 mg/DL (0-149) H D 11/17/17 07:55 Cholesterol 175 mg/dL (0-199) 11/17/17 07:55 LDL Cholesterol Direct 71 mg/dL (0-129) 11/17/17 07:55 HDL Cholesterol 76 MG/DL (30-70) H 11/17/17 07:55 TSH 3rd Generation 3.31 mIU/ML (0.46-4.68) 11/17/17 07:55 Arterial Blood Potassium 3.5 mmol/L (3.6-5.2) L 11/17/17 10:47 Urine Opiates Screen Negative (NEGATIVE) 11/17/17 08:14 Urine Methadone Screen Negative (NEGATIVE) 11/17/17 08:14 Ur Barbiturates Screen Negative (NEGATIVE) 11/17/17 08:14 Ur Phencyclidine Scrn Negative (NEGATIVE) 11/17/17 08:14 Ur Amphetamines Screen Negative (NEGATIVE) 11/17/17 08:14 U Benzodiazepines Scrn Negative (NEGATIVE) 11/17/17 08:14 U Oth Cocaine Metabols Negative (NEGATIVE) 11/17/17 08:14 U Cannabinoids Screen Positive (NEGATIVE) H 11/17/17 08:14 Alcohol, Quantitative < 10 mg/dl (0-10) 11/17/17 07:55 - Hospital Course Hospital Course: 32 y/o non-compliant male patient with a past medical history of epilepsy was admitted to the hospital from ED s/p seizure x 2. Patient was on outpatient Keppra which he stopped taking about a year ago. During the hospital stay, patient received head CT which showed unremarkable results. Patient was had elevated WBC, lactic acid at the time of admission; new labs were taken at the time of his discharge which showed improvement. Patient was also loaded with Keppra at the time of admission but is now switched to Depakote due to financial concerns. Patient was also seen by neurology during his admission who recommended Depakote 500 mg BID and stop Keppra. Today, patient is feeling better but reports of having muscle soreness (possibly due to tonic-clonic seizure). Reports that his headache has also improved since his admission. During the hospital stay, patient was found to have elevated blood glucose which was not followed well due to patient rejecting accuchecks. Patient is extremely non-compliant. Patient and the mother was educated to follow up at the clinic and prescriptions were provided before discharge. 1). Reoccurrence of epileptic seizure - Resolved - Tele/obs admission - Consultation with Dr. Nguyễn - Recommended Depakote 500 mg BID and follow up with a neurologist as an outpatient - Depakote 500 mg BID - Ativan PRN for seizure activity - Seizure precautions - Ibuprofen PRN for pain 2). Hyperglycemia on admission, 285 - HGA1C for eval of DM, poss type 1? - @ 107 mg/dL on discharge - Date & Time of H&P Date of H&P: 11/18/17 Time of H&P: 10:32 Discharge Exam - Head Exam Head Exam: ATRAUMATIC, NORMAL INSPECTION, NORMOCEPHALIC - Eye Exam Eye Exam: Normal appearance - ENT Exam ENT Exam: Normal Exam - Neck Exam Neck exam: Full Rom, Normal Inspection, Tenderness (Muscular tenderness during ROM of the neck (R>L)) - Respiratory Exam Respiratory Exam: Clear to PA & Lateral, NORMAL BREATHING PATTERN, UNREMARKABLE - Cardiovascular Exam Cardiovascular Exam: REGULAR RHYTHM, +S1, +S2 - GI/Abdominal Exam GI & Abdominal Exam: Normal Bowel Sounds, Soft, Unremarkable - Rectal Exam Rectal Exam: Deferred - Extremities Exam Extremities exam: full ROM, normal inspection, tenderness - Back Exam Back exam: FULL ROM, tenderness - Neurological Exam Neurological exam: Alert, Oriented x3 - Psychiatric Exam Psychiatric exam: Normal Affect, Normal Mood - Skin Skin Exam: Intact, Normal Color, Warm Discharge Plan - Discharge Medications Prescriptions: Divalproex [Depakote] 500 mg PO BID #120 tcp - Follow Up Plan Condition: FAIR Disposition: HOME/ ROUTINE Instructions: Epilepsy (DC) Additional Instructions: Please schedule follow up appointment in two weeks at [facility] [place] tel [phone]. Take your Vimpat (antiseizure medication) as ordered. Referrals: [facility] [place] [Outside]
[2017-11-18 12:46] VITALS: BP 112/66; PULSE 61; TEMP 99; O2SAT 99
[2017-11-18] MEDS ORDERED: Magnesium Sulfate 2 gm/50 ml 2 GM/50 ML BAG IVPB ONE (13:20)
[2017-11-18] MEDS ORDERED: Dexamethasone 10 MG in Sodium Chloride 0.9% 50 ML IV ONE (13:22)
--- NOTE | 2017-11-18 13:25 | CP.PCM.PN ---
Subjective - Date & Time of Evaluation Date of Evaluation: 11/18/17 Time of Evaluation: 13:23 - Subjective Subjective: Mr. Chatman was seen and examined at the bedside. He is alert, oriented in all spheres. He states of experiencing headache with pain scale 5/10 located at the bilateral temporal areas radiating to the frontal area. He denies any blurred vision, dizziness, lightheadedness, nause, or vomiting. He is able to follow simple commands. There was no untoward events overnight. Objective - Vital Signs/Intake and Output Vital Signs (last 24 hours): Temp Pulse Resp BP Pulse Ox 99.0 F 61 18 112/66 99 11/18/17 12:00 11/18/17 12:00 11/18/17 12:00 11/18/17 12:00 11/18/17 12:00 - Medications Medications: Current Medications Acetaminophen (Tylenol 325mg Tab) 650 mg PO Q6 PRN PRN Reason: Pain, moderate (4-7) Last Admin: 11/17/17 17:55 Dose: 650 mg Divalproex Sodium (Depakote Dr(*Bid*)) 500 mg PO BID [facility] Last Admin: 11/18/17 09:00 Dose: 500 mg Sodium Chloride (Sodium Chloride 0.9%) 1,000 mls @ 75 mls/hr IV .[id number] [facility] Last Admin: 11/18/17 02:55 Dose: 75 mls/hr Magnesium Sulfate (Magnesium Sulfate 2 Gm/50 Ml Water) 2 gm in 50 mls @ 50 mls/ hr IVPB ONCE ONE PRN Reason: 2 GM/HR Stop: 11/18/17 14:19 Dexamethasone 10 mg/ Sodium (Chloride) 51 mls @ 100 mls/hr IV ONCE ONE Stop: 11/18/17 13:51 Ibuprofen (Motrin Tab) 400 mg PO Q6 PRN PRN Reason: Pain, moderate (4-7) Last Admin: 11/18/17 09:01 Dose: 400 mg Lorazepam (Ativan) 1 mg IVP ONCE PRN PRN Reason: Seizure activity - Labs Labs: 11/18/17 04:25 11/18/17 04:25 - Constitutional Appears: No Acute Distress - Head Exam Head Exam: NORMAL INSPECTION - Neurological Exam Neurological Exam: Alert, Awake, CN II-XII Intact, Oriented x3 Neuro motor strength exam: Left Upper Extremity: 4, Right Upper Extremity: 4, Left Lower Extremity: 4, Right Lower Extremity: 4 Additional comments: He is able to answer questions appropriately and follows simple commands Assessment and Plan (1) Epilepsy Assessment & Plan: Case discussed with Dr. Nguyễn, continue all current medical regimen and follow up with his primary neurologist as an outpatient. Status: Acute
[2017-11-18 14:30] LABS: HEMOGLOBIN 12.5 g/dL (12.0-18.0); MEAN CELL VOLUME 91.4 fl (80.0-94.0); MEAN CORPUSCULAR HEMOGLOBIN 30.2 pg (27.0-31.0); RBC 4.13 Mil/uL (4.40-5.90); RED CELL DISTRIBUTION WIDTH 13.2 % (11.5-14.5); WHITE BLOOD COUNT 14.4 K/uL (4.8-10.8)
== END 2017-11-18 15:30 | disposition home or self-care (01) ==
LOC: H.ER 07:25 → H.ERHOLD 10:53 → H.TEL 12:33
PROVIDERS: ADMIT Internal Medicine; ATTEND Internal Medicine
DX: G40.409 Other generalized epilepsy and epileptic syndromes, not intractable, without status epilepticus (principal); D72.829 Elevated white blood cell count, unspecified; E86.0 Dehydration; F12.90 Cannabis use, unspecified, uncomplicated; Z79.899 Other long term (current) drug therapy; Z87.891 Personal history of nicotine dependence; Z91.19 Patient's noncompliance with other medical treatment and regimen; Z91.81 History of falling; R45.4 Irritability and anger; R73.9 Hyperglycemia, unspecified; M62.82 Rhabdomyolysis
CPT/HCPCS: 36415; 70450; 71045; 80053; 80061; 82550; 82803; 82948; 83036; 83605; 84443; 84484; 85025; 85027; 93005; 96361; 96365; 96375; 99285; G0378; G0480; J1100; J1953; J2060; J7040; J7120

== ENCOUNTER 2019-01-02 00:34 | Emergency (ER) | payer SELFPAY ==
[2019-01-02 00:43] VITALS: BMI 20.7
[2019-01-02] MEDS ORDERED: Sodium Chloride 0.9% 1,000 ML IV STA (01:09)
--- NOTE | 2019-01-02 01:12 | ED PDOC ---
HPI: Abdomen Time Seen by Provider: 01/02/19 00:52 Chief Complaint (Nursing): Abdominal Pain Chief Complaint (Provider): abdominal pain History Per: Patient History/Exam Limitations: no limitations Onset/Duration Of Symptoms: Hrs Current Symptoms Are (Timing): Still Present Location Of Pain/Discomfort: RUQ, Epigastric, LUQ Associated Symptoms: Nausea, Vomiting Additional Complaint(s): 33 y/o male presents for evaluation of upper abdominal pain x 12 hours. Associated nausea/vomiting. Patient states symptoms started while eating a ham and cheese sandwich. Denies fever, chest pain, shortness of breath, palpitatio ns, changes in bowel movements, urinary symptoms, recent travel, sick contacts. Past Medical History Reviewed: Historical Data, Nursing Documentation, Vital Signs Vital Signs: Last Vital Signs Temp 97.8 F 01/02/19 00:49 Pulse 66 01/02/19 00:49 Resp 16 01/02/19 00:49 BP 133/77 01/02/19 00:49 Pulse Ox 100 01/02/19 00:49 - Medical History PMH: Back Problems, Seizures (epilepsy, last seizure within the past year) Denies: Asthma, Chronic Kidney Disease - Surgical History Surgical History: No Surg Hx - Family History Family History: States: Unknown Family Hx, Diabetes - Immunization History Hx Influenza Vaccination: No - Home Medications Home Medications: Ambulatory Orders Medication Instructions Recorded Divalproex [Depakote] 500 mg PO BID #120 tcp 11/18/17 Dicyclomine [Bentyl] 20 mg PO TID PRN #15 tab 01/02/19 Famotidine [Pepcid] 20 mg PO BID #10 tab 01/02/19 Ondansetron ODT [Zofran ODT] 4 mg PO Q8 PRN #12 odt 01/02/19 - Allergies Allergies/Adverse Reactions: Allergies Allergy/AdvReac Type Severity Reaction Status Date / Time No Known Allergies Allergy Verified 01/02/19 00:51 Review of Systems ROS Statement: Except As Marked, All Systems Reviewed And Found Negative Gastrointestinal: Positive for: Nausea, Vomiting, Abdominal Pain Physical Exam - Reviewed Nursing Documentation Reviewed: Yes Vital Signs Reviewed: Yes - Physical Exam Appears: Positive for: Well, Non-toxic, Uncomfortable Head Exam: Positive for: ATRAUMATIC, NORMAL INSPECTION, NORMOCEPHALIC Skin: Positive for: Normal Color Eye Exam: Positive for: Normal appearance ENT: Positive for: Normal ENT Inspection Cardiovascular/Chest: Positive for: Regular Rate, Rhythm Respiratory: Positive for: Normal Breath Sounds Gastrointestinal/Abdominal: Positive for: Bowel Sounds, Soft, Tenderness (RUQ, epigastric, LUQ) Back: Positive for: Normal Inspection Extremity: Positive for: Normal ROM Neurologic/Psych: Positive for: Alert, Oriented (x3) - Laboratory Results Result Diagrams: 01/02/19 01:25 01/02/19 01:25 - ECG O2 Sat by Pulse Oximetry: 100 - Progress ED Course And Treament: -cbc -cmp -lipase -urinalysis -urine drug screen -IV NS bolus -IV zofran -IV pepcid -IV toradol -RUQ u/s Ultrasound of the right upper quadrant. Comparison: 10/29/2017. Indication: Abdominal pain and vomiting. Technique: Real-time ultrasound images. Findings: Liver measures 16.5 cm. Normal gallbladder thickness measuring 1.1 mm. Negative sonographic Buckner. No evidence of cholelithiasis. Nondilated common bile duct measuring 3.2 mm. Unremarkable pancreas. Unremarkable aorta. Unremarkable IVC. Unremarkable right kidney measuring 13x4.5x6.4 cm. Impression: Unremarkable exam On re-eval patient still vomiting; IV reglan ordered. CT abd/pelvis ordered CT SCAN OF THE ABDOMEN AND PELVIS WITH CONTRAST. CLINICAL HISTORY: Abdominal pain. TECHNIQUE: Multiple axial and coronal CT images were obtained through the abdomen and pelvis after administration of intravenous contrast material. COMPARISON: 10/29/2017. COMMENTS: Interval appearance of mild diffuse thickening of the colon. Interval appearance of mild diffuse thickening of the bladder. Uncomplicated colonic diverticulosis. The liver is of uniform attenuation without mass or defect. There is no intra or extrahepatic biliary ductal dilatation. The spleen is normal. The gallbladder is within normal limits. The pancreas is of normal contour and attenuation characteristics. There is no evidence of adrenal mass. Both kidneys demonstrate prompt and equal nephrograms. The kidneys are normal in size, shape and configuration. There is no evidence of renal or ureteral mass. No renal or ureteral calculi are identified. There is no hydroureter or hydronephrosis. No evidence for appendicitis. No evidence for small or large bowel obstruction. There is no evidence of abdominal ascites or lymphadenopathy. There is no evidence of intrinsic or extrinsic bladder mass. There is no pelvic ascites or lymphadenopathy. Images of the lung bases show no evidence of pleural or parenchymal mass. There are no pleural effusions. The bony structures are free of lytic or blastic lesions. IMPRESSION: Interval appearance of mild colitis. Mild thickening of the bladder. Underdistention versus mild cystitis. Patient states he is feeling better on re-eval. Tolerating PO Patient educated on findings, discharged wiht rx Zofran, Bentyl, Pepcid Advised increase fluid intake, bland diet Follow up with PMD within 2-3 days Return precuations given Disposition - Clinical Impression Clinical Impression: Abdominal pain - Patient ED Disposition Is Patient to be Admitted: No Counseled Patient/Family Regarding: Studies Performed, Diagnosis, Need For Followup, Rx Given - Disposition Referrals: formerly [facility] [Outside] Disposition: Routine/Home Disposition Time: 06:00 Condition: IMPROVED Prescriptions: Dicyclomine [Bentyl] 20 mg PO TID PRN #15 tab PRN Reason: Pain, Mild (1-3) Famotidine [Pepcid] 20 mg PO BID #10 tab Ondansetron ODT [Zofran ODT] 4 mg PO Q8 PRN #12 odt PRN Reason: Nausea/Vomiting Instructions: Acute Abdomen (Belly Pain), Nausea and Vomiting, Adult Forms: [facility] (Polish)
[2019-01-02 01:47] LABS: BASO # 0.1 K/uL (0.0-0.2); BASO % 0.8 % (0.0-2.0); HEMOGLOBIN 13.6 g/dL (12.0-18.0); LYMPH # 1.3 K/uL (1.0-4.3); LYMPH % 7.9 % (20.0-40.0); MEAN CELL VOLUME 94.3 fl (80.0-94.0); MEAN CORPUSCULAR HEMOGLOBIN 30.5 pg (27.0-31.0); MEAN CORPUSCULAR HGB CONC 32.3 g/dL (33.0-37.0); MONO # 0.6 K/uL (0.0-0.8); MONO % 3.5 % (0.0-10.0); NEUT # 14.2 K/uL (1.8-7.0); NEUT % 87.8 % (50.0-75.0); NRBC % 0.2 % (0.0-0.0); PLATELET COUNT 165 K/uL (130-400); RBC 4.45 Mil/uL (4.40-5.90); RED CELL DISTRIBUTION WIDTH 13.7 % (11.5-14.5); WHITE BLOOD COUNT 16.2 K/uL (4.8-10.8)
[2019-01-02 01:58] LABS: ALB/GLOB RATIO 1.1 (1.0-2.1); ALBUMIN 4.7 g/dL (3.5-5.0); ALT/SGPT 40 U/L (21-72); AST/SGOT 35 U/L (17-59); BLOOD UREA NITROGEN 13 mg/dl (9-20); CALCIUM 10.2 mg/dL (8.4-10.2); GFR NON-AFRICAN AMERICAN > 60; LIPASE 24 U/L (23-300)
[2019-01-02 03:02] LABS: ANISOCYTOSIS SLIGHT; EOSINOPHIL 1 % (0-7); LARGE PLATELETS PRESENT; LYMPHOCYTE 12 % (20-50); MONOCYTE 3 % (0-10); NEUTROPHIL 84 % (42-75); PLATELET ESTIMATE NORMAL (NORMAL); TEARDROP CELLS SLIGHT; TOTAL CELLS COUNTED 100
[2019-01-02] MEDS ORDERED: Iohexol 300 100 ML IJ ONE ×2 (03:12→03:13)
[2019-01-02] MEDS ORDERED: Sodium Chloride 0.9% 50 ML IV ONE (03:14)
[2019-01-02] MEDS ORDERED: Potassium Chloride 20 mEq ER Tab PO ONE ×2 (05:22→05:40)
[2019-01-02] MEDS ORDERED: Morphine 4 MG/ML VIAL IV ONE ×2 (05:24→05:40)
[2019-01-02] MEDS ORDERED: Morphine 4 MG/ML VIAL ONE ×2 (05:41→05:43)
[2019-01-02 07:43] VITALS: BP 115/66; PULSE 59; TEMP 97.2
[2019-01-02 08:05] VITALS: RESP 20
--- NOTE | 2019-01-02 10:54 | US ---
Date of service: 01/02/2019 HISTORY: abd pain, vomiting COMPARISON: None. TECHNIQUE: Sonographic evaluation of the right upper quadrant of the abdomen. FINDINGS: LIVER: Measures 16.5 cm in length. Normal echogenicity of the liver parenchyma. No mass. No intrahepatic bile duct dilatation. GALLBLADDER: Unremarkable. No gallstones. COMMON BILE DUCT: Measures 3 mm. No stones. No dilatation. PANCREAS: Unremarkable as visualized. No mass. No ductal dilatation. RIGHT KIDNEY: Measures 13 cm in length. Normal echogenicity. No calculus, mass, or hydronephrosis. AORTA: No aneurysmal dilatation. IVC: Unremarkable. OTHER FINDINGS: None . IMPRESSION: Unremarkable examination. No evidence of cholelithiasis or cholecystitis. No biliary obstruction. The preliminary findings for this examination were reported by [facility] Radiology at 01/02/2019 at 2:53 a.m.. There is concurrence of this report with the preliminary findings.
--- NOTE | 2019-01-02 11:49 | CT ---
Date of service: 01/02/2019 PROCEDURE: CT Abdomen and Pelvis with contrast HISTORY: abd pain, vomiting COMPARISON: 10/29/2017 TECHNIQUE: Contrast dose: 90 mL Omnipaque 300 Radiation dose: Total exam DLP = 211.74 mGy-cm. This CT exam was performed using one or more of the following dose reduction techniques: Automated exposure control, adjustment of the mA and/or kV according to patient size, and/or use of iterative reconstruction technique. FINDINGS: LOWER THORAX: Unremarkable. LIVER: Unremarkable. No gross lesion or ductal dilatation. GALLBLADDER AND BILE DUCTS: Unremarkable. PANCREAS: Unremarkable. No gross lesion or ductal dilatation. SPLEEN: Unremarkable. ADRENALS: Unremarkable. No mass. KIDNEYS AND URETERS: Unremarkable. No hydronephrosis. No solid mass. VASCULATURE: Unremarkable. No aortic aneurysm. No aortic atherosclerotic calcification or mural plaque present. BOWEL: Mild mural thickening of the transverse, descending and sigmoid colon raising the possibility of a nonspecific colitis. Evaluation is limited by the absence of oral contrast opacification. No evidence of small-bowel obstruction. No other abnormal bowel loops. APPENDIX: Not identified. No secondary findings to suggest acute appendicitis. PERITONEUM: Minimal fluid in the pelvis. LYMPH NODES: Unremarkable. No enlarged lymph nodes. BLADDER: Unremarkable. REPRODUCTIVE: Normal prostate BONES: No acute fracture. OTHER FINDINGS: None. IMPRESSION: Findings concerning for nonspecific colitis involving the transverse descending and sigmoid colon. Minimal fluid in the pelvis. No additional abnormality. The preliminary findings for this examination were reported by [facility] [place] Radiology at 3:50 a.m. on 01/02/2019. There is concurrence of this report with the preliminary findings.
[2019-01-07 05:28] VITALS: O2SAT 100
== END 2019-01-02 08:06 | disposition home or self-care (01) ==
LOC: H.ER 00:34
DX: R10.9 Unspecified abdominal pain (principal); G40.909 Epilepsy, unspecified, not intractable, without status epilepticus
CPT/HCPCS: 74177; 76705; 80053; 83690; 85025; 96361; 96374; 96375; 96376; 99283; G0480; J1885; J2270; J2405; J2765; J7030; Q9967